=== PATIENT | male | born 1980 | race American Indian/Alaskan Native ===

== ENCOUNTER 2017-09-01 13:45 | Emergency (ER) | payer OTHER ==
[2017-09-01] MEDS ORDERED: NORCO 5/325 PO ONE (14:57)
[2017-09-01] MEDS ORDERED: TORADOL IM ONE (14:57)
--- NOTE | 2017-09-01 15:10 | Emergency Department Report ---
ED Upper Extremity Inj HPI - General Chief Complaint: Extremity Problem,Nontraumatic Stated Complaint: GOUT Time Seen by Provider: 09/01/17 14:52 Source: patient Mode of arrival: Ambulatory Limitations: No Limitations - History of Present Illness Initial Comments: 37-year-old male with a past medical history gout presents to the hospital pending the left hand and wrist pain 4 days. Patient is right-hand dominant. Denies any recent trauma or injury. Similar symptoms in the past with gout attacks. Patient take ibuprofen 800 mg without relief. No fever reported. Pain is 10/10 intensity, constant, worse with palpation and movement. - Related Data Previous Rx's Medication Instructions Recorded Last Taken Type Colchicine 0.6 mg PO Q1H #3 capsule 09/01/17 Unknown Rx HYDROcodone/APAP 5-325 [[place] 1 each PO Q6HR PRN #20 tablet 09/01/17 Unknown Rx 5/325] Indomethacin 50 mg PO Q8H PRN #20 capsule 09/01/17 Unknown Rx Allergies Allergy/AdvReac Type Severity Reaction Status Date / Time No Known Allergies Allergy Unverified 09/01/17 14:23 ED Review of Systems ROS: Stated complaint: GOUT Other details as noted in HPI Comment: All other systems reviewed and negative ED Past Medical Hx - Past Medical History Previous Medical History?: Yes Additional medical history: Gout - Surgical History Past Surgical History?: No - Social History Smoking Status: Former Smoker Substance Use Type: None - Medications Home Medications: Home Medications Medication Instructions Recorded Confirmed Last Taken Type Colchicine 0.6 mg PO Q1H #3 capsule 09/01/17 Unknown Rx HYDROcodone/APAP 5-325 [[place] 1 each PO Q6HR PRN #20 tablet 09/01/17 Unknown Rx 5/325] Indomethacin 50 mg PO Q8H PRN #20 capsule 09/01/17 Unknown Rx ED Physical Exam - General Limitations: No Limitations - Other Other exam information: General: No limitations, patient is alert in no acute distress Head exam: Atraumatic, normocephalic Eyes exam: Normal appearance ENT: Moist mucous membrane, normal oropharynx Neck exam: Normal inspection, full range of motion, no meningismus nontender Respiratory exam: Clear to auscultation bilateral, no wheezes, rales, crackles Cardiovascular: Normal rate and rhythm, normal heart sounds Abdomen: Soft, nondistended, and nontender, with normal bowel sounds, no rebound, or guarding Extremity: Full range of motion, left hand: mild swelling to proximal fourth and fifth proximal phalanges without warmth or erythema. nontender wrist Back: Normal Inspection, full range of motion, no tenderness Neurologic: Alert, oriented x3, cranial nerves intact, no motor or sensory deficit Psychiatric: normal affect, normal mood Skin: Warm, dry, intact ED Course Vital Signs 09/01/17 14:21 Temperature 98.4 F Pulse Rate 84 Respiratory 16 Rate Blood Pressure 144/102 O2 Sat by Pulse 97 Oximetry - Reevaluation(s) Reevaluation #1: 09/01/17 15:10 pt given Toradol and [place] ED Medical Decision Making - Medical Decision Making Patient will be treated for gout flare based on symptoms and history. BP noted to be elevated the patient denies history. Acute pain may be the cause of elevated bp. Outpatient repeat blood pressure will be recommended as well as outpatient follow-up for gout - Differential Diagnosis gout, contusion, strain, infection Critical Care Time: No Critical care attestation.: If time is entered above; I have spent that time in minutes in the direct care of this critically ill patient, excluding procedure time. ED Disposition Clinical Impression: Gout attack, Elevated blood pressure reading Disposition: TO HOME OR SELFCARE Is pt being admited?: No Does the pt Need Aspirin: No Condition: Stable Instructions: Acute Gouty Arthritis (ED), How to Take a Blood Pressure (ED) Additional Instructions: Take the medication as prescribed. Continued to monitor your blood pressure and record measurements and report these findings to your doctor to determine if medication is necessary. Return if symptoms worsen as indicated by your discharge instructions. Follow up with the primary care doctor provided or the doctor of your choice Prescriptions: Colchicine 0.6 mg PO Q1H #3 capsule HYDROcodone/APAP 5-325 [[place] 5/325] 1 each PO Q6HR PRN #20 tablet PRN Reason: Pain , Severe (7-10) Indomethacin 50 mg PO Q8H PRN #20 capsule PRN Reason: Pain, Moderate (4-6) Referrals: FILI DIAZ MD [Staff Physician] - 3-5 Days Time of Disposition: 15:17
[2017-09-01 15:48] VITALS: BP 136/98
== END 2017-09-01 15:30 | disposition home or self-care (01) ==
LOC: ED 13:45
DX: M10.032 Idiopathic gout, left wrist (principal); M10.042 Idiopathic gout, left hand; Z87.891 Personal history of nicotine dependence
CPT/HCPCS: 96372; 99282; J1885